=== PATIENT | female | born 1995 | race American Indian/Alaskan Native ===

== ENCOUNTER 2023-11-03 11:14 | Observation (INO) | payer MEDICAID ==
[2023-11-03] MEDS ORDERED: PREN-96 PO (11:34)
== END 2023-11-03 12:51 | disposition home or self-care (01) ==
LOC: UNDOADMOB 11:14 → LDRP 11:14 → UNDODISOB 12:51
PROVIDERS: ADMIT Obstetrics & Gynecology; ATTEND Obstetrics & Gynecology
DX: O36.5930 Maternal care for other known or suspected poor fetal growth, third trimester, not applicable or unspecified (principal); O24.419 Gestational diabetes mellitus in pregnancy, unspecified control; Z3A.32 32 weeks gestation of pregnancy; Z88.5 Allergy status to narcotic agent
CPT/HCPCS: 59025; 76818; 81002; 82948; 94760; G0378

== ENCOUNTER 2023-11-09 13:46 | Observation (INO) | payer MEDICAID ==
[~2023-11-09 13:46] MED LIST: PREN-96 PO
== END 2023-11-29 14:30 | disposition home or self-care (01) ==
LOC: UNDOADMOB 11-29 13:00 → LDRP 11-29 13:00 → UNDODISOB 11-29 14:30
PROVIDERS: ADMIT Obstetrics & Gynecology; ATTEND Obstetrics & Gynecology
DX: O24.419 Gestational diabetes mellitus in pregnancy, unspecified control (principal); O62.9 Abnormality of forces of labor, unspecified; Z3A.36 36 weeks gestation of pregnancy; Z88.5 Allergy status to narcotic agent
CPT/HCPCS: 59025; 76818; 81002; 82948; 94760; G0378

== ENCOUNTER 2023-11-10 13:00 | Observation (INO) | payer MEDICAID | END 2023-11-10 14:27 | disposition home or self-care (01) | LOC: LDRP 13:00 | PROVIDERS: ADMIT Obstetrics & Gynecology; ATTEND Obstetrics & Gynecology | DX: O24.419 Gestational diabetes mellitus in pregnancy, unspecified control (principal); O26.893 Other specified pregnancy related conditions, third trimester; R19.7 Diarrhea, unspecified; R11.0 Nausea; Z88.5 Allergy status to narcotic agent; Z3A.33 33 weeks gestation of pregnancy | CPT/HCPCS: 59025; 76818; 81002; 82948; 82962; 94760; G0378 ==

== ENCOUNTER 2023-12-08 15:40 | Observation (INO) | payer MEDICAID ==
[~2023-12-08 15:40] MED LIST changes: +GLYB2.5T9 PO
== END 2023-12-08 17:23 | disposition home or self-care (01) ==
LOC: LDRP 15:40
PROVIDERS: ADMIT Obstetrics & Gynecology; ATTEND Obstetrics & Gynecology
DX: O24.419 Gestational diabetes mellitus in pregnancy, unspecified control (principal); O26.853 Spotting complicating pregnancy, third trimester; O26.893 Other specified pregnancy related conditions, third trimester; R10.9 Unspecified abdominal pain; Z3A.37 37 weeks gestation of pregnancy
CPT/HCPCS: 59025; 76818; 81002; 82948; 94760; G0378

== ENCOUNTER 2023-12-12 14:35 | Observation (INO) | payer MEDICAID | END 2023-12-12 15:30 | disposition home or self-care (01) | LOC: UNDOADMOB 14:35 → LDRP 14:35 → UNDODISOB 15:30 | PROVIDERS: ADMIT Obstetrics & Gynecology; ATTEND Obstetrics & Gynecology | DX: O24.415 Gestational diabetes mellitus in pregnancy, controlled by oral hypoglycemic drugs (principal); Z3A.37 37 weeks gestation of pregnancy; Z79.84 Long term (current) use of oral hypoglycemic drugs | CPT/HCPCS: 59025; 76818; 81002; 82948; 82962; G0378 ==

== ENCOUNTER 2023-12-15 13:50 | Observation (INO) | payer MEDICAID ==
[2023-12-21] MEDS ORDERED: DOCU-94 PO (12:44)
[2023-12-21] MEDS ORDERED: IBUP-1456 PO (12:44)
[2023-12-21] MEDS ORDERED: HYDR-4902 PO (12:44)
== END 2023-12-15 15:13 | disposition home or self-care (01) ==
LOC: LDRP 13:50
PROVIDERS: ADMIT Obstetrics & Gynecology; ATTEND Obstetrics & Gynecology
DX: O24.419 Gestational diabetes mellitus in pregnancy, unspecified control (principal); Z3A.38 38 weeks gestation of pregnancy
CPT/HCPCS: 59025; 76818; 81002; 82948; 94760; G0378